=== PATIENT | female | born 1990 | race Two or more races ===

== ENCOUNTER 2017-08-15 10:21 | Outpatient (CLI) | payer MEDICAID ==
[~2017-08-15] VITALS: Ht 152.4 cm; Wt 67.2 kg
[2017-08-15 10:39] VITALS: Ht 152.4 cm; Wt 67.2 kg
[2017-08-15 10:40] VITALS: BP 131/83
[2017-08-15] MEDS ORDERED: PREN1TAB17 PO (10:42)
--- NOTE | 2017-08-15 10:56 | RADRPT ---
PROCEDURE: OB ultrasound for biophysical profile CLINICAL INDICATION: Poor tone. TECHNIQUE: Multiple sonographic images of the pelvis were obtained. Transabdominal views of the g ravid uterus are available for review. The images were reviewed on a PACS workstation. COMPARISON: None FINDINGS: breathing movement = 2/2 tone = 2/2 motion = 2/2 WALI = 2/2 WALI = 12.5 cm Single live intrauterine with cardiac activity of 163 bpm. position is breech . The placenta is anterior. IMPRESSION: 1. Single live intrauterine gestation. 2. Biophysical profile = 8/8. 3. WALI = 12.5 cm. 4. Breech presentation. RPTAT: HH .Kesha Herrera MD, Date Time Electronically viewed and signed by .Kesha Herrera MD, on 08/15/2017 10:55 .G/
[2017-08-15 11:08] LABS: BASOPHIL # 0.1 10^3/ul (0.0-0.1); BASOPHILS % 0.6 % (0.0-2.0); EOSINOPHILS # 0.1 10^3/ul (0.0-0.5); EOSINOPHILS % 0.7 % (0.0-7.0); HEMATOCRIT 35.1 % (37.0-47.0); HEMOGLOBIN 12.3 g/dl (12.0-16.0); LYMPHOCYTES # 2.1 10^3/ul (0.8-2.9); LYMPHOCYTES % 21.7 % (15.0-51.0); MEAN CORPUSCULAR HEMOGLOBIN 31.9 pg (29.0-33.0); MEAN CORPUSCULAR VOLUME 91.2 fl (82.0-101.0); MEAN PLATELET VOLUME 9.5 fl (7.4-10.4); MONOCYTE # 0.8 10^3/ul (0.3-0.9); MONOCYTES % 8.5 % (0.0-11.0); NEUTROPHIL # 6.5 10^3/ul (1.6-7.5); NEUTROPHILS % 66.4 % (39.0-77.0); PLATELET COUNT 435 10^3/UL (140-415); RED BLOOD COUNT 3.85 10^6/ul (4.20-5.40); RED CELL DISTRIBUTION WIDTH 12.9 % (11.5-14.5); WHITE BLOOD COUNT 9.8 10^3/ul (4.8-10.8)
[2017-08-15 11:20] LABS: ADD UMIC YES; UR ASCORBIC ACID NEGATIVE (NEGATIVE); UR BACTERIA FEW /HPF (NONE SEEN); UR BILIRUBIN (Dip) NEGATIVE (NEGATIVE); UR BLOOD (Dip) NEGATIVE (NEGATIVE); UR CLARITY CLOUDY (CLEAR); UR COLOR YELLOW (YELLOW); UR GLUCOSE (Dip) NEGATIVE (NEGATIVE); UR KETONES (Dip) NEGATIVE (NEGATIVE); UR LEUKOCYTE ESTERASE (Dip) 3+ Leu/ul (NEGATIVE); UR NITRITE (Dip) NEGATIVE (NEGATIVE); UR RBC 2 /HPF (0-5); UR TOTAL PROTEIN (Dip) NEGATIVE (NEGATIVE); UR UROBILINOGEN (Dip) NEGATIVE (NEGATIVE)
[2017-08-15 11:33] LABS: INR 0.99; PROTIME 13.1 Sec (12.2-14.2)
[2017-08-15 11:34] LABS: PARTIAL THROMBOPLASTIN TIME 30.6 Sec (25.0-35.0)
[2017-08-15 11:39] LABS: ALBUMIN 3.2 g/dl (3.3-4.9); ALBUMIN/GLOBULIN RATIO 0.86; BILIRUBIN,INDIRECT 0.2 mg/dl (0-1.1); BILIRUBIN,TOTAL 0.2 mg/dl (0.2-1.3); CALCIUM 9.6 mg/dl (8.4-10.2); CREATININE 0.61 mg/dl (0.44-1.00); POTASSIUM 3.1 mmol/L (3.5-5.1); TOTAL PROTEIN 6.9 g/dl (6.1-8.1); URIC ACID 5.1 mg/dl (3.1-7.9)
--- NOTE | 2017-08-15 12:49 | TRIAGE ---
OB Triage Datetime Report Generated by CPN: 08/15/2017 12:49 Datetime: 08/15/2017 12:18 Labor Evaluation Frequency: 0 Pattern: Normal: <= 5 Contractions in 10 Minutes Resting Tone [place]: Relaxed Heart Rate FHR Baseline Rate: 135 Monitor Mode: External US Variability: Moderate 6-25 bpm Accelerations: 15X15 Decelerations: None Category: Category I Pain Presence: None/Denies Pain Type: N/A Datetime: 08/15/2017 11:23 Stage of : OB Triage Labor Evaluation Frequency: 0 Monitor Mode: External Heart Rate FHR Baseline Rate: 135 Monitor Mode: External US Variability: Moderate 6-25 bpm Accelerations: 15X15 Decelerations: None Category: Category I Pain Assessment Pain Scale: 0 Pain Presence: None/Denies Pain Type: N/A Pain Goal: 0 Datetime: 08/15/2017 10:47 EGA: 37.0 Datetime: 08/15/2017 10:44 Stage of : OB Triage Assessment Type: Triage Maternal Assessment Level of Consciousness: Fully Conscious DTR's/Clonus: DTRs 2+; No Clonus Headache: Denies Blurred Vision: No Respiratory Effort: Unlabored; Regular Rhythm; Equal Expansion Breath Sounds, Left: Clear and Equal Breath Sounds, Right: Clear and Equal Nausea/Vomiting: Denies RUQ Epigastric Pain: Denies Lower Extremities Edema: None Degree: None Upper Extremities Edema: None Degree: None Facial Edema: None Temperature Route: Oral Fall Risk Assessment History of Falling: (0) No Secondary Diagnosis: (0) No Ambulatory Aid: (0) Bedrest/Nurse Assist IV Therapy: (0) No Gait: (0) Normal/Bedrest/Immobile Mental Status: (0) Oriented to Own Ability Fall Score: 0 Fall Risk Score Definition: No Risk: No action required Labor Evaluation Frequency: INITAL PLACEMENT Monitor Mode: External Monitor Mode: External US Pain Assessment Pain Scale: 0 Pain Presence: None/Denies Pain Type: N/A Datetime: 08/15/2017 10:43 Time of Arrival: 08/15/2017 10:16 EGA: 36.0 Arrived By: Ambulatory Arrived From: Dr. Alcantar Chief Complaint: SENT FROM CLINIC FOR ELEVATED B/P Movement: Present Contractions: Denies/Absent Rupture of Membranes: Denies Vaginal Bleeding: None Vaginal Discharge: Denies Recent Sexual Intercouse: Denies Abdominal Trauma: Not Applicable Patient Complaints: Other Initial Plan: EFMX2 AND PIH WORK UP
--- NOTE | 2017-08-15 13:00 | PN ---
Triage Information Date/Time Reason for visit: Weeks of Gestation 36 weeks /Para Additional information Elevated BPs in clinic, improved in triage Objective Vital Signs Date Time Temp Pulse Resp B/P Pulse Ox O2 Delivery O2 Flow Rate FiO2 08/15/17 10:40 97.8 131/83 Room Air Heart Rate Comments reactive Contractions: None Results/Medications Result Diagram: 08/15/17 1052 08/15/17 1052 Results 24 hrs Laboratory Tests Test 08/15/17 10:46 08/15/17 10:52 Urine Color YELLOW Urine Clarity CLOUDY A Urine pH 7.0 Urine Specific [place] 1.010 Urine Ketones NEGATIVE Urine Nitrite NEGATIVE Urine Bilirubin NEGATIVE Urine Urobilinogen NEGATIVE Urine Leukocyte Esterase 3+ H Urine Microscopic RBC 2 Urine Microscopic WBC 7 H Urine Bacteria FEW A Urine Hemoglobin NEGATIVE Urine Glucose NEGATIVE Urine Total Protein NEGATIVE White Blood Count 9.8 Red Blood Count 3.85 L Hemoglobin 12.3 Hematocrit 35.1 L Mean Corpuscular Volume 91.2 Mean Corpuscular Hemoglobin 31.9 Mean Corpuscular Hemoglobin Concent 35.0 Red Cell Distribution Width 12.9 Platelet Count 435 H Mean Platelet Volume 9.5 Neutrophils % 66.4 Lymphocytes % 21.7 Monocytes % 8.5 Eosinophils % 0.7 Basophils % 0.6 Nucleated Red Blood Cells % 0.0 Neutrophils # 6.5 Lymphocytes # 2.1 Monocytes # 0.8 Eosinophils # 0.1 Basophils # 0.1 Nucleated Red Blood Cells # 0.0 Prothrombin Time 13.1 Prothrombin Time Ratio 1.0 INR International Normalized Ratio 0.99 Activated Partial Thromboplast Time 30.6 Fibrinogen 502.0 H Sodium Level 139 Potassium Level 3.1 L Chloride Level 109 Carbon Dioxide Level 22 Anion Gap 11 Blood Urea Nitrogen 7 Creatinine 0.61 Glucose Level 89 Uric Acid 5.1 Calcium Level 9.6 Total Bilirubin 0.2 Direct Bilirubin 0.00 Indirect Bilirubin 0.2 Aspartate Amino Transf (AST/SGOT) 24 Alanine Aminotransferase (ALT/SGPT) 20 Alkaline Phosphatase 183 H Total Protein 6.9 Albumin 3.2 L Globulin 3.70 H Albumin/Globulin Ratio 0.86 Imaging Results BPP 8/8, WALI 12.5cm Disposition: Discharge Assessment/Plan 27 y/o at 36 weeks with elevated BPs, no e/o preeclampsia -discharge home with 24 hour urine -f/u with JOSE KULKARNI Aug 15, 2017 13:00
== END 2017-08-15 12:55 | disposition home or self-care (01) ==
LOC: L-D 10:21 → OBT 10:21
PROVIDERS: ATTEND Obstetrics & Gynecology
DX: O26.892 Other specified pregnancy related conditions, second trimester (principal); R03.0 Elevated blood-pressure reading, without diagnosis of hypertension; Z3A.28 28 weeks gestation of pregnancy
CPT/HCPCS: 76818; 80053; 81001; 84560; 85025; 85384; 85610; 85730; Z7500; G0463

== ENCOUNTER 2017-08-16 19:06 | Outpatient (CLI) | payer MEDICAID ==
[~2017-08-16] VITALS: Ht 152.4 cm; Wt 68.3 kg
[~2017-08-16 19:06] MED LIST: PREN1TAB17 PO
[2017-08-16 19:59] VITALS: BP 125/86; PULSE 68; RESP 18; Ht 152.4 cm; Wt 68.3 kg
[2017-08-16 22:41] LABS: SCRET 0.61 mg/dl (0.44-1.00)
--- NOTE | 2017-08-16 22:53 | PN ---
Triage Information Date/Time Reason for visit: elevated BP Weeks of Gestation 37 weeks /Para Diabetes: none Hypertention: none Objective Vital Signs Date Time Temp Pulse Resp B/P Pulse Ox O2 Delivery O2 Flow Rate FiO2 08/16/17 19:59 97.6 68 18 125/86 Room Air Heart Rate: 130's Heart Rate Comments Category I Results/Medications Result Diagram: 08/16/172139 Results 24 hrs Laboratory Tests Test 08/16/17 20:00 08/16/17 21:40 Urine Random Creatinine 71.63 Urine Collection Duration 24 Urine Total Volume 24 Hours 1500 Urine Creatinine Timed 24 Creatinine Clearance 122.3 Urine Total Volume (Protein) 1500 Urine Total Protein 24 Hour 270.0 H Creatinine 0.61 Disposition: Discharge Assessment/Plan No sign of preeclampsia D/C home ROLANDA LOPEZ MD Aug 16, 2017 22:53
--- NOTE | 2017-08-17 01:34 | TRIAGE ---
OB Triage Datetime Report Generated by CPN: 08/17/2017 01:33 Datetime: 08/16/2017 22:48 Stage of : OB Triage Frequency: None noted or palpated Monitor Mode: External Resting Tone [place]: Relaxed FHR Baseline Rate: 130 Monitor Mode: External US Variability: Moderate 6-25 bpm Accelerations: 15X15 Decelerations: None Category: Category I Pain Scale: 0 Pain Presence: None/Denies Pain Type: N/A Pain Assessment Comments: Pt denies any pain or cramping Datetime: 08/16/2017 22:45 Stage of : OB Triage Datetime: 08/16/2017 22:00 Stage of : OB Triage Frequency: Irregular Monitor Mode: External Duration (sec)2399: 40-130 Quality: Mild Pattern: Normal: <= 5 Contractions in 10 Minutes Resting Tone [place]: Relaxed FHR Baseline Rate: 135 Monitor Mode: External US FHR Baseline Changes: No Baseline Change Variability: Moderate 6-25 bpm Accelerations: 15X15 Decelerations: None Category: Category I Datetime: 08/16/2017 21:00 Stage of : OB Triage Frequency: Irregular Monitor Mode: External Duration (sec)2399: 40-100 Quality: Mild Pattern: Normal: <= 5 Contractions in 10 Minutes Resting Tone [place]: Relaxed FHR Baseline Rate: 135 Monitor Mode: External US Variability: Moderate 6-25 bpm Accelerations: 15X15 Decelerations: None Category: Category I Datetime: 08/16/2017 20:00 Stage of : OB Triage Frequency: x1 Monitor Mode: External Duration (sec)2399: 50 Quality: Mild Pattern: Normal: <= 5 Contractions in 10 Minutes Resting Tone [place]: Relaxed FHR Baseline Rate: 150 Monitor Mode: External US Variability: Moderate 6-25 bpm Accelerations: 15X15 Decelerations: Variable Category: Category II Datetime: 08/16/2017 19:52 Stage of : OB Triage Assessment Type: Triage Level of Consciousness: Fully Conscious DTR's/Clonus: DTRs 2+; No Clonus Headache: Denies Blurred Vision: No Respiratory Effort: Unlabored; Regular Rhythm; Equal Expansion Breath Sounds, Left: Clear and Equal Breath Sounds, Right: Clear and Equal Nausea/Vomiting: Denies RUQ Epigastric Pain: Denies Lower Extremities Edema: None Degree: None Upper Extremities Edema: None Degree: None Facial Edema: None Temperature Route: Oral History of Falling: (0) No Secondary Diagnosis: (0) No Ambulatory Aid: (0) Bedrest/Nurse Assist IV Therapy: (0) No Gait: (0) Normal/Bedrest/Immobile Mental Status: (0) Oriented to Own Ability Fall Score: 0 Fall Risk Score Definition: No Risk: No action required Pain Scale: 0 Pain Presence: None/Denies Pain Type: N/A Datetime: 08/16/2017 19:49 Monitor Mode: External Contraction Comments: [place] applied Datetime: 08/16/2017 19:48 Monitor Mode: External US Comments: EFM applied Datetime: 08/16/2017 19:46 Time of Arrival: 08/16/2017 19:00 EGA: 37.1 Arrived By: Ambulatory Arrived From: Home Chief Complaint: Follow-up with 24hr urine drop-off Movement: Present Contractions: Denies/Absent Rupture of Membranes: Denies Vaginal Bleeding: None Vaginal Discharge: Denies Abdominal Trauma: Not Applicable Patient Complaints: None Time Provider Notified: 08/16/2017 19:10 Provider Notified: Initial Plan: NST, total 24hr protein, creatinine clearance, creatinine draw Datetime: 08/15/2017 10:47 EGA: 37.0
== END 2017-08-16 23:00 | disposition home or self-care (01) ==
LOC: OBT 19:06 → L-D 19:07 → OBT 23:00
PROVIDERS: ATTEND Obstetrics & Gynecology
DX: O26.893 Other specified pregnancy related conditions, third trimester (principal); R03.0 Elevated blood-pressure reading, without diagnosis of hypertension; Z3A.37 37 weeks gestation of pregnancy
CPT/HCPCS: 82565; 82575; 84156; Z7500; G0463